=== PATIENT | male | born 1930 | race Caucasian/White ===

== ENCOUNTER 2017-01-17 09:11 | Outpatient (CLI) | payer MEDICARE, OTHER | END 2017-01-17 09:12 | disposition home or self-care (01) | DX: E11.22 Type 2 diabetes mellitus with diabetic chronic kidney disease (principal); E11.65 Type 2 diabetes mellitus with hyperglycemia; N18.3 Chronic kidney disease, stage 3 (moderate) ==

== ENCOUNTER 2021-04-03 09:06 | Outpatient (CLI) | payer MEDICARE, OTHER ==
--- NOTE | 2021-04-03 13:13 | XRAY Report ---
PROCEDURE: Knee 3 View RT INDICATIONS: RT KNEE ARTHRALGIA TECHNIQUE: 3 views of the right knee(s) were acquired. COMPARISON: None. FINDINGS: Bones: No fractures or dislocations. No suspicious bony lesions. Tricompartment osteophytes. Moder ate to severe medial compartment joint space loss. Soft tissues: Small joint effusion. No suspicious soft tissue calcifications. Vascular calcificatio ns. IMPRESSION: Degenerative arthritis of the right knee. Reviewed by: Bola Cisneros MD on 04/03/2021 12:12 PM WILLIAM Approved by: Bola Cisneros MD on 04/03/2021 12:12 PM WILLIAM Station ID: [id number]
== END 2021-04-03 09:07 | disposition home or self-care (01) ==
LOC: DI.N 09:06
PROVIDERS: ATTEND Orthopaedic Surgery
DX: M17.11 Unilateral primary osteoarthritis, right knee (principal)